=== PATIENT | female | born 2000 | race African-American/Black ===

== ENCOUNTER 2019-05-03 20:47 | Emergency (ER) | payer MEDICAID ==
[~2019-05-03] VITALS: Ht 175.3 cm; Wt 100.7 kg
[~2019-05-03 20:47] MED LIST: NITROFURANTOIN100 MG PO; PHENAZOPYRIDIN200 MG ORAL; QVAR7.3 G2 IH; VENTOLIN HFA18 GM INH; XOPENEX1.25 MG/3 HHN
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
[2019-05-03 21:25] VITALS: BP 137/87
[2019-05-03] MEDS ORDERED: IBUPROFEN600 MG ORAL (21:53)
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
[2019-05-03 21:55] VITALS: BP 137/87
--- NOTE | 2019-05-03 21:55 | NUR ---
ED Nurse Note: Pt cleared by health care Provider for discharge. DC instructions/prescription was given and explained to pt and verbalized understanding of teachings. All medical deviecs such as ID band removed. Pt is AAO x4, ambulatory and left with all personal belongings.
--- NOTE | 2019-05-04 14:49 | Diagnostic Imaging Report ---
Indication: Trauma, pain Technique: 3 views of the left shoulder Comparison: none Findings: No acute fractures. No dislocations. The joint spaces are preserved. Impression: Negative
== END 2019-05-03 21:55 | disposition home or self-care (01) ==
LOC: EMR 21:09
DX: S40.012A Contusion of left shoulder, initial encounter (principal); J45.909 Unspecified asthma, uncomplicated; V43.62XA Car passenger injured in collision with other type car in traffic accident, initial encounter; Y92.410 Unspecified street and highway as the place of occurrence of the external cause
CPT/HCPCS: 99283